=== PATIENT | male | born 1965 | race Two or more races ===

== ENCOUNTER 2017-01-24 21:11 | Emergency (ER) | payer MEDICAID ==
[~2017-01-24] VITALS: Ht 167.6 cm; Wt 72.6 kg
[2017-01-24] MEDS ORDERED: HALOPERIDOL LACTATE INJ 5 MG/ML VIAL ONE (21:25)
[2017-01-24] MEDS ORDERED: HALOPERIDOL LACTATE INJ 5 MG/ML VIAL IM ONE (21:30)
[2017-01-24] MEDS ORDERED: IV NS 0.9% 1,000 ML BAG IV ONE ×2 (21:30→22:30)
[2017-01-24] MEDS ORDERED: IV SET PRIMARY 1 EA INFUS.SET MC ONE ×3 (21:40→23:32)
[2017-01-24] MEDS ORDERED: IV NS 0.9% 1,000 ML ONE ×3 (21:40→23:32)
[2017-01-24] MEDS ORDERED: LORAZEPAM INJ 2 MG/ML VIAL ONE (21:52)
[2017-01-24] MEDS ORDERED: LORAZEPAM INJ 2 MG/ML VIAL IV ONE (22:30)
[2017-01-24 22:47] LABS: BASOPHILS % (AUTO) 0.4 % (0.0-2.0); DIFF TOTAL % 100 %; EOSINOPHILS % (AUTO) 0.2 % (0.0-6.0); HEMATOCRIT 37 % (39-51); HEMOGLOBIN 12.3 g/dL (13.5-17.5); LYMPHOCYTES # (AUTO) 0.8 /CMM (0.8-4.8); LYMPHOCYTES % (AUTO) 6.7 % (20.0-44.0); MEAN CORPUSCULAR HEMOGLOBIN 31 PG (26.0-33.0); MEAN CORPUSCULAR HGB CONC 33 g/dl (31.0-36.0); MEAN CORPUSCULAR VOLUME 92 fL (80-96); MONOCYTES # (AUTO) 0.5 /CMM (0.1-1.30); MONOCYTES % (AUTO) 4.3 % (2.0-12.0); NEUTROPHILS # (AUTO) 11.1 /CMM (1.8-8.9); NEUTROPHILS % (AUTO) 88.4 % (43.0-81.0); PLATELET COUNT (AUTO) 279 /CMM (150-450); RED BLOOD CELL COUNT(AUTO) 3.98 MIL/uL (4.5-6.0); WHITE BLOOD COUNT (AUTO) 12.5 K/uL (4.3-11.0)
[2017-01-24 22:54] LABS: KETONES,URINE NEGATIVE (NEGATIVE); LEUKOCYTE ESTERASE ,URINE NEGATIVE (NEGATIVE)
[2017-01-24 22:56] LABS: ADD UA MICROSCOPIC YES
[2017-01-24 22:58] LABS: ANION GAP 16 (5-14); CALCIUM, SERUM 9.4 mg/dL (8.5-10.1); CARBON DIOXIDE 26 mmol/L (21-32); CHLORIDE 106 mmol/L (98-107); CREATININE 1.1 mg/dL (0.6-1.3); GFR 71 mL/min (>60); GLUCOSE 108 mg/dL (74-106); POTASSIUM 3.5 mmol/L (3.5-5.1); SODIUM SERUM 144 mmol/L (136-145); UREA NITROGEN, BLOOD 25 mg/dL (7-18)
[2017-01-24 23:04] LABS: ALANINE AMINOTRANSFERASE 37 U/L (12-78); ASPARTATE AMINOTRANSFERASE 51 U/L (15-37); BILIRUBIN,DIRECT 0.1 mg/dL (0.0-0.2); BILIRUBIN,TOTAL 0.7 mg/dL (0.2-1.0); INDIRECT BILIRUBIN 0.6 mg/dL (0.0-1.1); SALICYLATE 2.8 mg/dL (2.8-20.0); TOTAL PROTEIN, SERUM 7.7 g/dL (6.4-8.2)
[2017-01-24 23:05] LABS: ACETAMINOPHEN 0 ug/ml (10-30)
[2017-01-24 23:16] LABS: CANNABINOID, URINE NEGATIVE (NEGATIVE); PHENCYCLIDINE SCREEN,URINE NEGATIVE (NEGATIVE)
[2017-01-24 23:31] LABS: RBC,URINE 0-2 /HPF (0-2)
[2017-01-24 23:32] LABS: ADD URINE CULTURE NO
[2017-01-24] MEDS ORDERED: Magnesium 1GM/D5W 100ML PREMIX 200 ML IV ONE (23:32)
[2017-01-24] MEDS ORDERED: IV SET PRIMARY PUMP SET 1 EA INFUS.SET MC ONE (23:32)
[2017-01-24 23:33] LABS: SPERM,URINE Few /HPF (None Seen)
[2017-01-24 23:39] LABS: CREATINE KINASE MB 6.6 ng/mL (0-3.6)
[2017-01-25] MEDS ORDERED: Magnesium 1 GM/2 ML VIAL IV ONE
[2017-01-25] MEDS ORDERED: IV NS 0.9% 1,000 ML BAG IV ONE
[2017-01-25 00:07] LABS: INR 0.9 (0.87-1.13); PROTHROMBIN TIME 9.7 SECS (9.5-12.7)
[2017-01-25 09:00] VITALS: BP 135/81
== END 2017-01-25 09:01 | disposition home or self-care (01) ==
LOC: ER 21:12
DX: T51.0X1A Toxic effect of ethanol, accidental (unintentional), initial encounter (principal); R41.82 Altered mental status, unspecified; M62.82 Rhabdomyolysis; F22 Delusional disorders; E86.0 Dehydration; I45.81 Long QT syndrome; F17.210 Nicotine dependence, cigarettes, uncomplicated; Y92.89 Other specified places as the place of occurrence of the external cause; Y93.89 Activity, other specified; Y99.8 Other external cause status
CPT/HCPCS: 36415; 51702; 70450; 71010; 80048; 80076; 80305; 80329; 81001; 82550; 82553; 82962; 85025; 85610; 93005; 99284; A4606 ×2; G0480 ×2; J1630; J2060; J3475; J7030 ×2; Z7610 ×2; 81000-TC; G6039-TC

== ENCOUNTER 2017-10-10 23:57 | Emergency (ER) | payer OTHER ==
[~2017-10-10] VITALS: Ht 170.2 cm; Wt 72.6 kg
[2017-10-11] MEDS ORDERED: OLANZAPINE 5 MG/TAB.RAPDIS ONE (00:27)
[2017-10-11] MEDS ORDERED: LORAZEPAM INJ 2 MG/ML VIAL ONE (00:27)
[2017-10-11] MEDS ORDERED: LORAZEPAM INJ 2 MG/ML VIAL IV ONE (00:30)
[2017-10-11] MEDS ORDERED: ASPIRIN 325 MG TABLET PO ONE (00:30)
[2017-10-11] MEDS ORDERED: IV NS 0.9% 1,000 ML BAG IV ONE (00:30)
[2017-10-11] MEDS ORDERED: OLANZAPINE 5 MG/TAB.RAPDIS PO ONE (00:30)
--- NOTE | 2017-10-11 00:50 | NUR ---
PT BROUGHT IN BY POLICE CUSTODY, AGITATED BUT WILL CALM WITH CONVRESATION. PT PLACED IN DOUBLE HANDCUFF RT & LT EXTREMITIES. IV ACCESS ATTEMPTED, PT NON-COMPLIANT AND AGGRESSIVE TOWARDS STAFF. PT REFUSING ALL TREATMENT. OFFERED ORAL MEDS, PT SPIT MEDICATION AT NURSE. MD TO PT BEDSIDE. NO FURTHER ATTEMPTS MADE FOR STAFF SAFETY. PT TAKEN INTO POLICE CUSTODY AMA. PT STABLE AT TIME OF DC
[2017-10-11 01:05] VITALS: BP 131/84
== END 2017-10-11 01:07 ==
LOC: ER 10-11 00:01
DX: R07.89 Other chest pain (principal); F99 Mental disorder, not otherwise specified; F17.200 Nicotine dependence, unspecified, uncomplicated
CPT/HCPCS: 93005; 99283; A4606; J2060; Z7610

== ENCOUNTER 2017-11-03 18:42 | Emergency (ER) | payer SELFPAY ==
[~2017-11-03] VITALS: Ht 165.1 cm; Wt 67.1 kg
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
--- NOTE | 2017-11-03 19:03 | NUR ---
SUMMER CHILD CAREGIVER AT BED SIDE FOR BLOOD DRAW.
[2017-11-03] MEDS ORDERED: ARIP2TAB9 PO (19:07)
[2017-11-03 19:08] LABS: BASOPHILS % (AUTO) 0.6 % (0.0-2.0); EOSINOPHILS % (AUTO) 0.6 % (0.0-6.0); HEMATOCRIT 41 % (39-51); HEMOGLOBIN 13.5 g/dL (13.5-17.5); LYMPHOCYTES # (AUTO) 1.1 /CMM (0.8-4.8); LYMPHOCYTES % (AUTO) 14.1 % (20.0-44.0); MEAN CORPUSCULAR HEMOGLOBIN 29 PG (26.0-33.0); MEAN CORPUSCULAR HGB CONC 33 g/dl (31.0-36.0); MEAN CORPUSCULAR VOLUME 89 fL (80-96); MONOCYTES # (AUTO) 0.6 /CMM (0.1-1.30); MONOCYTES % (AUTO) 7.7 % (2.0-12.0); NEUTROPHILS # (AUTO) 5.8 /CMM (1.8-8.9); PLATELET COUNT (AUTO) 304 /CMM (150-450); RDW COEFFICIENT OF VARIATION 11.3 (11.5-15.0); RED BLOOD CELL COUNT(AUTO) 4.58 MIL/uL (4.5-6.0); WHITE BLOOD COUNT (AUTO) 7.5 K/uL (4.3-11.0)
--- NOTE | 2017-11-03 19:18 | NUR ---
PATIENT TAKEN TO XRAY VIA WHEELCHAIR.
[2017-11-03 19:23] LABS: INR 0.91 (0.87-1.13); PROTHROMBIN TIME 9.5 SECS (9.5-12.7)
[2017-11-03 19:24] LABS: CALCIUM, SERUM 8.6 mg/dL (8.5-10.1); CARBON DIOXIDE 28 mmol/L (21-32); CHLORIDE 106 mmol/L (98-107); GLUCOSE 117 mg/dL (74-106); POTASSIUM 3.6 mmol/L (3.5-5.1); SODIUM SERUM 143 mmol/L (136-145); UREA NITROGEN, BLOOD 22 mg/dL (7-18)
[2017-11-03 19:32] LABS: TROPONIN I < 0.017 ng/mL (0.00-0.056)
--- NOTE | 2017-11-03 19:34 | NUR ---
PATIENT RETURNED FROM XRAY IN STABLE CONDITION.
[2017-11-03 20:18] VITALS: BP 138/92
--- NOTE | 2017-11-03 20:18 | NUR ---
IV removed. Catheter intact and site benign. Pressure and 4x4 applied to site. No bleeding noted. Patient discharged to home in stable condition. Written and verbal after care instructions given. Patient verbalizes understanding of instruction.
== END 2017-11-03 20:19 | disposition home or self-care (01) ==
LOC: ER 18:43
DX: R07.89 Other chest pain (principal); F17.200 Nicotine dependence, unspecified, uncomplicated
CPT/HCPCS: 36415; 71010; 71120; 80048; 84484; 85025; 85730; 93005; 99285; 99406; A4606; Z7610

== ENCOUNTER 2018-06-14 14:23 | Emergency (ER) | payer OTHER ==
[~2018-06-14] VITALS: Ht 170.2 cm; Wt 65.8 kg
[~2018-06-14 14:23] MED LIST: ARIP2TAB3 PO
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
--- NOTE | 2018-06-14 15:23 | NUR ---
PT WAS TAKEN TO CT
[2018-06-14 15:58] LABS: CALCIUM, SERUM 8.9 mg/dL (8.5-10.1); CREATININE 0.9 mg/dL (0.6-1.3); POTASSIUM 4.4 mmol/L (3.5-5.1)
[2018-06-14 15:59] LABS: BASOPHILS % (AUTO) 0.4 % (0.0-2.0); EOSINOPHILS % (AUTO) 0.5 % (0.0-6.0); HEMATOCRIT 38 % (39-51); HEMOGLOBIN 13.2 g/dL (13.5-17.5); LYMPHOCYTES % (AUTO) 10.7 % (20.0-44.0); MEAN CORPUSCULAR HEMOGLOBIN 31 PG (26.0-33.0); MEAN CORPUSCULAR HGB CONC 34 g/dl (31.0-36.0); MEAN CORPUSCULAR VOLUME 90 fL (80-96); MONOCYTES # (AUTO) 0.5 /CMM (0.1-1.30); NEUTROPHILS # (AUTO) 7.8 /CMM (1.8-8.9); NEUTROPHILS % (AUTO) 83.4 % (43.0-81.0); PLATELET COUNT (AUTO) 243 /CMM (150-450); RDW COEFFICIENT OF VARIATION 12.1 (11.5-15.0); RED BLOOD CELL COUNT(AUTO) 4.25 MIL/uL (4.5-6.0); WHITE BLOOD COUNT (AUTO) 9.3 K/uL (4.3-11.0)
[2018-06-14 16:04] LABS: ALBUMIN 3.4 g/dL (3.4-5.0); BILIRUBIN,DIRECT 0.2 mg/dL (0.0-0.2); BILIRUBIN,TOTAL 0.9 mg/dL (0.2-1.0); TOTAL PROTEIN, SERUM 6.6 g/dL (6.4-8.2)
--- NOTE | 2018-06-14 16:52 | NUR ---
PT. VERBALIZED UNDERSTANDING OF AFTERCARE INSTRUCTIONS.Patient discharged to custody of [employer] in stable condition. Written and verbal after care instructions given. Patient verbalizes understanding of instruction.
[2018-06-14 16:53] VITALS: BP 124/73
--- NOTE | 2018-06-14 17:01 | NUR ---
Patient discharged to home in stable condition. Written and verbal after care instructions given. Patient verbalizes understanding of instruction.
== END 2018-06-14 17:01 ==
LOC: ER 14:42
DX: R56.9 Unspecified convulsions (principal); F10.10 Alcohol abuse, uncomplicated; Y90.9 Presence of alcohol in blood, level not specified; F17.200 Nicotine dependence, unspecified, uncomplicated; Z98.890 Other specified postprocedural states
CPT/HCPCS: 36415; 70450-TC; 80048-TC; 80076-TC; 85025-TC; A4606; Z7610

== ENCOUNTER 2018-12-29 07:56 | Emergency (ER) | payer OTHER ==
[~2018-12-29] VITALS: Ht 170.2 cm; Wt 69.4 kg
[2018-12-29] MEDS ORDERED: ALTEPLASE 100 MG/VIAL VIAL IV ONE ×3 (07:59→10:30)
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
--- NOTE | 2018-12-29 08:10 | NUR ---
SEEN AND EXAMINED BY DR. WHEELER, PT IS AWAKE BUT UNABLE TO SPEAK, SWALLOW EVAL PASSED.
--- NOTE | 2018-12-29 08:14 | NUR ---
CALLED CODE STROKE
--- NOTE | 2018-12-29 08:15 | NUR ---
PT IS WHEELED TO CT SCAN VIA ACLS PROTOCOL.
--- NOTE | 2018-12-29 08:16 | NUR ---
PT WHEELED OUT FOR CT SCAN
--- NOTE | 2018-12-29 08:17 | NUR ---
Ruben arndt in [facility] - 12/29/18 at 0820 by TEN CALLED CODE STROKE
--- NOTE | 2018-12-29 08:18 | NUR ---
CALLED [facility] [phone] DR. MARTELL TO CALL US BACK.
[2018-12-29] MEDS ORDERED: IOHEXOL-350 100 ML VIAL IV ONE (08:21)
[2018-12-29] MEDS ORDERED: CT SWABBABLE VALVE TRANS SET 1 EA INFUS.SET MC ONE (08:21)
[2018-12-29] MEDS ORDERED: IV NS 0.9% 250 ML IV ONE (08:21)
--- NOTE | 2018-12-29 08:25 | NUR ---
LABS DRAWNED BY PHLEB. AWAITING RESULTS.
[2018-12-29] MEDS ORDERED: IV NS 0.9% 1,000 ML BAG IV ONE (08:30)
[2018-12-29 08:33] LABS: BASOPHILS # (AUTO) 0.1 /CMM (0.0-0.2); BASOPHILS % (AUTO) 0.8 % (0.0-2.0); EOSINOPHILS % (AUTO) 1.1 % (0.0-6.0); HEMATOCRIT 38 % (39-51); HEMOGLOBIN 13.1 g/dL (13.5-17.5); LYMPHOCYTES # (AUTO) 1.5 /CMM (0.8-4.8); LYMPHOCYTES % (AUTO) 18.6 % (20.0-44.0); MEAN CORPUSCULAR HGB CONC 34 g/dl (31.0-36.0); MEAN CORPUSCULAR VOLUME 88 fL (80-96); MONOCYTES # (AUTO) 0.7 /CMM (0.1-1.30); MONOCYTES % (AUTO) 8.1 % (2.0-12.0); NEUTROPHILS # (AUTO) 5.8 /CMM (1.8-8.9); NEUTROPHILS % (AUTO) 71.4 % (43.0-81.0); PLATELET COUNT (AUTO) 329 /CMM (150-450); RED BLOOD CELL COUNT(AUTO) 4.35 MIL/uL (4.5-6.0); WHITE BLOOD COUNT (AUTO) 8.2 K/uL (4.3-11.0)
--- NOTE | 2018-12-29 08:36 | NUR ---
PT IS BACK FROM THE CT SCAN, EVALUATED BY TELE NEURO.
[2018-12-29 08:41] LABS: CALCIUM, SERUM 8.2 mg/dL (8.5-10.1); CARBON DIOXIDE 25 mmol/L (21-32); CHLORIDE 106 mmol/L (98-107); CREATININE 0.9 mg/dL (0.6-1.3); GLUCOSE 114 mg/dL (74-106); POTASSIUM 3.1 mmol/L (3.5-5.1); SODIUM SERUM 141 mmol/L (136-145); UREA NITROGEN, BLOOD 26 mg/dL (7-18)
[2018-12-29 08:46] LABS: SALICYLATE 1.8 mg/dL (2.8-20.0)
[2018-12-29 08:47] LABS: ALANINE AMINOTRANSFERASE 23 U/L (12-78); ALBUMIN 3.6 g/dL (3.4-5.0); ALKALINE PHOSPHATASE 143 U/L (46-116); ASPARTATE AMINOTRANSFERASE 20 U/L (15-37); BILIRUBIN,DIRECT 0.1 mg/dL (0.0-0.2); BILIRUBIN,TOTAL 0.4 mg/dL (0.2-1.0); TOTAL PROTEIN, SERUM 6.8 g/dL (6.4-8.2)
[2018-12-29 09:05] LABS: CHOLESTEROL 155 mg/dL (<200); HDL CHOLESTEROL 80 mg/dL (40-60); LDL 52 mg/dL (0-99); TRIGLYCERIDES 126 mg/dL (30-150)
[2018-12-29] MEDS ORDERED: hydrALAZINE HCL IV 20 MG VIAL ONE (09:17)
--- NOTE | 2018-12-29 09:17 | NUR ---
CALLED [facility] [phone] [place] FAX FAC[address]HEET AND CT REPORT TO: [phone]
[2018-12-29] MEDS ORDERED: ALTEPLASE 1 VIAL ONE (09:20)
[2018-12-29] MEDS: ALTEPLASE 100 MG/VIAL VIAL IV ONE ×2 (09:30→10:14)
[2018-12-29] MEDS ORDERED: LABETALOL 20 MG/4 ML VIAL IV ONE (09:30)
[2018-12-29] MEDS ORDERED: hydrALAZINE HCL IV 20 MG VIAL IV ONE (09:30)
--- NOTE | 2018-12-29 09:30 | NUR ---
rt-PA CONSENT FORM SIGNED BY PT. GIVEN BOLUS AND DRIP, NEURO CHECK EVERY 15MINS FOR 1HR.
--- NOTE | 2018-12-29 09:30 | NUR ---
ACTIVASE GIVEN 6.3ML BOLUS AND 56.7ML DRIP TO RUN FOR 1HR.
--- NOTE | 2018-12-29 09:41 | NUR ---
CALLED [phone] DR. DAS WILL ACCEPTING. WORKING ON BED AND TRANSPORT.
[2018-12-29 09:58] VITALS: BP 147/102
--- NOTE | 2018-12-29 10:12 | NUR ---
CALLED [phone] TO GET BED NUMBER AND GET ACCEPTING MD TO GET REPORT FROM OUR ER MD. INFORMED THAT THEY WILL CALL US BACK
--- NOTE | 2018-12-29 10:20 | NUR ---
TRANSPORT FROM [facility] HERE. HAS NOT SPOKEN TO ACCEPTING DOCTOR
--- NOTE | 2018-12-29 10:25 | NUR ---
CALLED DOCTOR DAS [phone] FOR ER MD TO GIVE REPORT.
[2018-12-29] MEDS ORDERED: diphenhydrAMINE HCL 50 MG/ML VIAL ONE (10:28)
[2018-12-29] MEDS ORDERED: methylPREDNISolone SOD SUCC 125 MG/2ML VIAL ONE (10:28)
[2018-12-29] MEDS ORDERED: FAMOTIDINE/PF INJ 20 MG/2 ML VIAL IV ONE (10:31)
--- NOTE | 2018-12-29 10:45 | NUR ---
REPORT GIVEN TO LOLITA OCHOA FOR DELPHINE IN [facility].
== END 2018-12-29 11:00 | disposition short-term general hospital (02) ==
LOC: ER 07:58
DX: R47.01 Aphasia (principal); R41.82 Altered mental status, unspecified; I10 Essential (primary) hypertension; R56.9 Unspecified convulsions; G89.29 Other chronic pain; F29 Unspecified psychosis not due to a substance or known physiological condition; F10.10 Alcohol abuse, uncomplicated; F17.200 Nicotine dependence, unspecified, uncomplicated; R00.0 Tachycardia, unspecified; Y90.0 Blood alcohol level of less than 20 mg/100 ml; Z98.890 Other specified postprocedural states
CPT/HCPCS: 36415; 70450-TC; 70496-TC; 70498-TC; 71045-TC; 80048-TC; 80061-TC; 80076-TC; 82962-TC; 84484-TC; 85025-TC; 85730-TC; G0480; J0360; J1200; J2930; J2997; J3490; J7030; J7050; Q9967

== ENCOUNTER 2019-05-27 09:25 | Emergency (ER) | payer MEDICAID, OTHER ==
[~2019-05-27] VITALS: Ht 170.2 cm; Wt 69.4 kg
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
[2019-05-27] MEDS ORDERED: LORAZEPAM INJ 2 MG/ML VIAL IM/IV ONE (10:00)
[2019-05-27] MEDS ORDERED: HALOPERIDOL LACTATE INJ 5 MG/ML VIAL IM ONE (10:00)
[2019-05-27] MEDS ORDERED: diphenhydrAMINE HCL 50 MG/ML VIAL IM ONE (10:00)
[2019-05-27] MEDS ORDERED: diphenhydrAMINE HCL 50 MG/ML VIAL ONE (10:01)
[2019-05-27] MEDS ORDERED: HALOPERIDOL LACTATE INJ 5 MG/ML VIAL ONE (10:02)
[2019-05-27] MEDS ORDERED: LORAZEPAM INJ 2 MG/ML VIAL ONE (10:02)
[2019-05-27 10:04] LABS: BASOPHILS % (AUTO) 0.5 % (0.0-2.0); EOSINOPHILS % (AUTO) 0.7 % (0.0-6.0); HEMATOCRIT 38 % (39-51); HEMOGLOBIN 12.9 g/dL (13.5-17.5); LYMPHOCYTES # (AUTO) 1.1 /CMM (0.8-4.8); LYMPHOCYTES % (AUTO) 14.6 % (20.0-44.0); MEAN CORPUSCULAR HGB CONC 34 g/dl (31.0-36.0); MEAN CORPUSCULAR VOLUME 90 fL (80-96); MONOCYTES # (AUTO) 0.4 /CMM (0.1-1.30); MONOCYTES % (AUTO) 6.2 % (2.0-12.0); NEUTROPHILS # (AUTO) 5.6 /CMM (1.8-8.9); PLATELET COUNT (AUTO) 292 /CMM (150-450); RED BLOOD CELL COUNT(AUTO) 4.23 MIL/uL (4.5-6.0); WHITE BLOOD COUNT (AUTO) 7.2 K/uL (4.3-11.0)
[2019-05-27 10:10] LABS: CALCIUM, SERUM 8.6 mg/dL (8.5-10.1); CARBON DIOXIDE 27 mmol/L (21-32); CHLORIDE 105 mmol/L (98-107); GLUCOSE 108 mg/dL (74-106); POTASSIUM 3.4 mmol/L (3.5-5.1); SODIUM SERUM 141 mmol/L (136-145); UREA NITROGEN, BLOOD 14 mg/dL (7-18)
[2019-05-27 10:15] LABS: ALANINE AMINOTRANSFERASE 30 U/L (12-78); ALBUMIN 3.5 g/dL (3.4-5.0); ALCOHOL, BLOOD < 3 mg/dL (0-0); ALKALINE PHOSPHATASE 145 U/L (46-116); ASPARTATE AMINOTRANSFERASE 29 U/L (15-37); BILIRUBIN,DIRECT 0.1 mg/dL (0.0-0.2); BILIRUBIN,TOTAL 0.7 mg/dL (0.2-1.0); TOTAL PROTEIN, SERUM 6.8 g/dL (6.4-8.2)
[2019-05-27 10:16] LABS: ACETAMINOPHEN 0 ug/ml (10-30); SALICYLATE 1.7 mg/dL (2.8-20.0)
[2019-05-27 18:17] LABS: APPEARANCE,URINE Clear (CLEAR); BILIRUBIN,URINE Negative (NEGATIVE); BLOOD, URINE Negative Ery/uL (NEGATIVE); COLOR,URINE Yellow (YELLOW); KETONES,URINE Negative (NEGATIVE); LEUKOCYTE ESTERASE ,URINE Negative (NEGATIVE); NITRITE, URINE Negative (NEGATIVE); PROTEIN,URINE Negative (NEGATIVE); UGLUCOSE Negative (NEGATIVE); UROBILINOGEN,URINE 0.2 EU/dL (0.2)
--- NOTE | 2019-05-27 18:40 | NUR ---
Patient is resting comfortably in bed with eyes closed. Easily aroused. VSS
--- NOTE | 2019-05-27 20:01 | NUR ---
VITAL SIGNS UPDATED.
--- NOTE | 2019-05-28 02:05 | NUR ---
Patient is resting comfortably in bed with eyes closed. Easily aroused. VSS
[2019-05-28 05:38] VITALS: BP 145/88
--- NOTE | 2019-05-28 05:38 | NUR ---
Patient given written and verbal discharge instructions. Patient verbalizes understanding of instructions. Patient is ambulatory with steady gait. Refuses offer of group home placement. Patient given list of available shelters in surrounding area.
== END 2019-05-28 05:41 | disposition home or self-care (01) ==
LOC: ER 09:29
DX: R45.1 Restlessness and agitation (principal); I10 Essential (primary) hypertension; F17.200 Nicotine dependence, unspecified, uncomplicated; Z95.818 Presence of other cardiac implants and grafts; Z60.2 Problems related to living alone; Z79.899 Other long term (current) drug therapy
CPT/HCPCS: 36415; 80048; 80076; 80307; 80329; 81001; 85025; 96372 ×2; 99284; J1200; J1630; J2060; 80305; 81000-TC; G0480